=== PATIENT | male | born 1975 | race Caucasian/White ===

== ENCOUNTER 2019-09-19 10:40 | Observation (INO) | payer BC, SELFPAY ==
[2019-09-19 11:58] LABS: Absolute Lymphocytes (CBC) 0.8 K/uL (0.7-4.9); Basophils % 0.3 % (0-1.3); Hematocrit 43.4 % (39.6-49.0); Lymphocytes % 15.7 % (15.3-44.8); MPV 9.1 fL (7.6-11.3); RBC Red Blood Cell Count 4.73 M/uL (4.33-5.43)
[2019-09-19] MEDS ORDERED: ONDANSETRON 4 MG/2 ML VIAL IV PRN (12:00)
[2019-09-19] MEDS ORDERED: ACETAMINOPHEN 325 MG TABLET PO PRN (12:00)
[2019-09-19] MEDS ORDERED: POLYETHYL GLY 3350 17 GM/DOSE PO PRN (12:00)
[2019-09-19] MEDS ORDERED: ONDANSETRON 4 MG (ODT) TAB PO PRN (12:00)
[2019-09-19] MEDS ORDERED: DIPHENHYDRAMINE 25 MG TAB/CAP PO PRN (12:00)
[2019-09-19] MEDS ORDERED: LOPERAMIDE HCL 2 MG CAPSULE PO PRN (12:00)
[2019-09-19 12:02] LABS: Protime INR 0.96
[2019-09-19 12:43] LABS: ALT/SGPT 38 U/L (12-78); AST/SGOT 40 U/L (15-37); Albumin 3.9 g/dL (3.4-5.0); Alkaline Phosphatase 94 U/L (45-117); BUN Blood Urea Nitrogen 9 mg/dL (7-18); Bicarbonate 29 mmol/L (21-32); Bilirubin Direct 0.2 mg/dL (0-0.2); Bilirubin Total 0.7 mg/dL (0.2-1.0); CKMB Creatine Kinase MB 16.1 ng/mL (0.3-3.6); Creatine Phosphokinase 233 U/L (39-308); Glucose Level 97 mg/dL (74-106); Magnesium 2.3 mg/dL (1.8-2.4); Phosphorus 2.7 mg/dL (2.5-4.9); Protein, Total 7.6 g/dL (6.4-8.2); Sodium Level 135 mmol/L (136-145); Thyroid Stimulating Hormone 0.481 uIU/mL (0.360-3.740)
[2019-09-19 12:46] LABS: Troponin I 4.43 ng/mL (0.0-0.045)
[2019-09-19] MEDS: COLCHICINE 0.6 MG TAB PO SCH ×2 (12:55→18:00)
[2019-09-19] MEDS: NACHLORIDE 0.45% 1,000 ML IV SCH (13:12)
--- NOTE | 2019-09-19 13:45 | ECHO ---
HEIGHT: 5 ft 5 in WEIGHT: 203 lb oz DATE OF STUDY: 09/19/[address]: Jemal Moralez MD 2-DIMENSIONAL: YES M.MODE: YES DOPPLER: YES COLOR FLOW: YES TDS: NO PORTABLE: NO DEFINITY: NO BUBBLE STUDY: NO DIAGNOSIS: CHEST PAIN CARDIAC HISTORY: CATHERIZATION: NO SURGERY: NO PROSTHETIC VALVE: NO PACEMAKER: NO MEASUREMENTS (cm) DIASTOLIC (NORMALS) SYSTOLIC (NORMALS) IVSd 1.1 (0.6-1.2) LA Diam 3.2 (1.9-4.0) LVEF 58% LVIDd 3.9 (3.5-5.7) LVIDs 2.7 (2.0-3.5) %FS 30% LVPWd 1.1 (0.6-1.2) Ao Diam 3.1 (2.0-3.7) 2 DIMENSIONAL ASSESSMENT: RIGHT ATRIUM: NORMAL LEFT ATRIUM: NORMAL RIGHT VENTRICLE: NORMAL LEFT VENTRICLE: NORMAL TRICUSPID VALVE: NORMAL MITRAL VALVE: NORMAL PULMONIC VALVE: NORMAL AORTIC VALVE: NORMAL PERICARDIAL EFFUSION: NONE AORTIC ROOT: NORMAL LEFT VENTRICULAR WALL MOTION: PARADOXICAL SEPTUM. DOPPLER/COLOR FLOW: NORMAL COMMENTS: PARADOXICAL SEPTUM. NO EFFUSION. NORMAL LEFT VENTRICULAR EJECTION FRACTION. NO MITRAL VALVE PROLAPSE. TECHNOLOGIST: Ky ESCAMILLA
[2019-09-19] MEDS: ASPIRIN EC 81 MG TAB PO SCH (13:56)
--- NOTE | 2019-09-19 14:01 | RAD REPORT ---
EXAM DESCRIPTION: RAD - Chest Pa And Lat (2 Views) - 09/19/2019 1:31 pm CLINICAL HISTORY: chest pain; pericarditis COMPARISON: None. TECHNIQUE: PA and lateral views of the chest were obtained. FINDINGS: The lungs are clear. Heart size is normal and central vasculature is within normal limit s. No pleural effusion or pneumothorax seen. No acute bony finding noted. No aortic abnormality. IMPRESSION: No acute cardiopulmonary process.
[2019-09-19 14:11] VITALS: BMI 33.7
[2019-09-19 14:53] LABS: Urine Appearance CLEAR; Urine Bilirubin NEGATIVE (NEG); Urine Blood NEGATIVE (NEG); Urine Color YELLOW; Urine Glucose NEGATIVE (NEG); Urine Protein NEGATIVE (NEG)
[2019-09-19 14:55] LABS: Urine Microscopic Reflex NO UMIC
--- NOTE | 2019-09-19 18:24 | EKG ---
Test Date: 2019-09-19 Test Time: 12:37:54 [employer] Lieutenant: A MEASUREMENT RESULTS: Intervals: Rate: 96 DC: 134 QRSD: 84 QT: 324 QTc: 409 [place]: P: 53 DC: 134 QRS: 30 T: 39 INTERPRETIVE STATEMENTS: Normal sinus rhythm Normal ECG Compared to ECG 02/27/2005 08:09:00 T-wave abnormality no longer present Electronically Signed On 09-19-19 18:22:11 DISASTER DIRECTOR by Ubaldo Banks
[2019-09-19 20:14] LABS: CKMB Creatine Kinase MB 7.3 ng/mL (0.3-3.6)
[2019-09-19 20:19] LABS: Troponin I 3.14 ng/mL (0.0-0.045)
--- NOTE | 2019-09-19 23:54 | CON ---
Date of Consultation: 09/19/[address] Moralez's service with chest pain on 09/19/2019. I saw the patient on 09/19/2019. History Of Present Illness: The patient is a 44-year-old male, who has a history of gastroesophageal reflux disease, hypertension, has been sick for approximately few days with cough, chest pain that i s much worse when he lies down. It is better when he sits up. It is nonexertional. No nausea, vomi ting, diaphoresis, PND, orthopnea, pedal edema, palpitations, or syncope. His chest pain was severe enough that Dr. Moralez admitted him to the hospital. Upon admission, he was noted to have an elevated troponin. Echocardiogram which was ordered stat showed paradoxical wall motion of the septum. His EKG was normal. Chest x-ray was normal. Past Medical History: As stated earlier, also includes sleep apnea. Review of Systems: Negative. Social History: Negative. Family History: Positive for heart disease. Allergies: NONE. Medications: At home include Lotrel, Prilosec, Vicodin, Zofran, and antibiotics and he just started colchicine in the hospital. Physical Examination: Vital Signs: Stable. Afebrile. HEENT: Negative. Neck: Supple without any bruit, lymphadenopathy, JVD, or thyromegaly. Chest: Clear to auscultation and percussion. Cardiac: Revealed a regular rhythm and rate. No murmurs, gallops, or rubs. Abdomen: Benign. Extremities: Revealed no clubbing, cyanosis, or edema. Diagnostic Data: As stated earlier. Impression And Plan: 1.Possible pericarditis versus myocarditis. EKG is normal. Troponin is elevated. I think we must rule out coronary artery disease. The case was discussed with Dr[facility] Moralez and [facility] He understands the risks and the benefits of the procedure and he agrees to proceed. Certainly, troponin elevation can be explained by pericarditis and myocarditis. I would agree with the colchic ine. Resume his normal regimen of medication. 2.Hypertension, well controlled. 3.Gastroesophageal reflux, well controlled. 4.Sleep apnea, well controlled. We will see what the catheterization shows before making final deci sions. RADHA/MINDY Voice ID: [id number] Report ID: [id number]
[2019-09-20] MEDS: COLCHICINE 0.6 MG TAB PO SCH ×4 (00:08→18:46)
[2019-09-20 03:38] LABS: Absolute Lymphocytes (CBC) 1.3 K/uL (0.7-4.9); Basophils % 0.6 % (0-1.3); Hematocrit 40.1 % (39.6-49.0); Lymphocytes % 29.6 % (15.3-44.8); RBC Red Blood Cell Count 4.36 M/uL (4.33-5.43)
[2019-09-20 03:44] LABS: Magnesium 2.3 mg/dL (1.8-2.4); Potassium 4.2 mmol/L (3.5-5.1)
[2019-09-20 04:03] LABS: CKMB Creatine Kinase MB 2.8 ng/mL (0.3-3.6)
[2019-09-20 04:08] LABS: Troponin I 1.61 ng/mL (0.0-0.045)
[2019-09-20 05:12] LABS: Blood Morphology Comment NOT SEEN (NOT SEEN); Platelet Estimate ADEQ
[2019-09-20] MEDS: AMLODIPINE 5 MG TAB PO SCH (05:51)
[2019-09-20] MEDS: ASPIRIN EC 81 MG TAB PO SCH (05:51)
[2019-09-20] MEDS: BENAZEPRIL 20 MG TAB PO SCH (05:52)
[2019-09-20] MEDS ORDERED: HEPA 1000U/500MLS 2,000 UNIT/1,000 ML BAG IV ONE (08:53)
[2019-09-20] MEDS ORDERED: AMLODIPINE BESYLATE PO SCH (09:00)
[2019-09-20] MEDS: FENOFIBRATE MICRONIZED 67 MG PO SCH (09:00)
[2019-09-20] MEDS ORDERED: BENAZEPRIL PO SCH (09:00)
[2019-09-20] MEDS ORDERED: FENTANYL CITR 100 MCG/2 ML ONE ×2 (09:31→10:29)
[2019-09-20] MEDS ORDERED: NA CHLORIDE 0.9% 500 ML ONE (09:31)
[2019-09-20] MEDS ORDERED: HEPARIN 5000 UNIT/ML 1 ML VIAL ONE (09:31)
[2019-09-20] MEDS ORDERED: MIDAZOLAM HCL 2 MG/2 ML INJ ONE ×3 (09:31→10:29)
[2019-09-20] MEDS ORDERED: NICARDIPINE HCL 25 MG/10 ML IV ONE (09:32)
[2019-09-20] MEDS ORDERED: NA CHLORIDE 0.9% 0 ML IV ONE (09:32)
[2019-09-20] MEDS ORDERED: ATROPINE SULF 1 MG/10 ML SYR IV ONE (09:32)
[2019-09-20] MEDS ORDERED: METOPROLOL TARTRATE 5 MG/5 ML INJ IV ONE (10:17)
--- NOTE | 2019-09-20 12:01 | OP ---
Surgeon: Kevin Han MD Answering Service Agent: Filomena Chavez. Identification: 44-year-old man. Procedure: Left heart catheterization with coronary left ventricular angiography. Indication: Evidence of [id number]. Troponins of 4 with chest pain. Procedure Findings: The patient has normal left ventricular ejection fraction, normal coronary arter ies, typical right dominant pattern with a small ramus. There is no plaque or calcification or any e tiffanie signs of atherosclerosis. His left ventricular ejection fraction normal, left ventricular end-d iastolic pressure 9. No aortic valve gradient on pullback. Normal cardiac cath. Procedure In Detail: The patient was brought to the cardiac chemical processing laborer in a fasting state, sedated wit h Versed and fentanyl. Prepared and draped in usual sterile fashion. The right radial artery was id entified through palpation. Tissues around the artery were anesthetized with 1% lidocaine. The juan c ry was entered using a 21-gauge needle, cannulated with a 0.021 inch diameter guidewire and a 6-Frenc h Terumo radial sheath was used. As soon as the sheath was in place, wire and introducer were remove d. The sheath was flushed and a radial cocktail was given consisting of nicardipine, heparin, nitrog lycerin. We guided a TIG catheter into the ascending aorta using fluoroscopy and a short radius J-ti p Glidewire. We were able to cannulate left ventricle, right coronary, left coronary all with the sa me catheter. No catheter exchanges were required. After pictures were taken, data was retrieved and found to be adequate. We removed the catheter over a guidewire, flushed the sheath, removed it, and closed the arteriotomy using a TR band. Estimated Blood Loss: 5 cc. Complications: None SH/MODL Voice ID: [id number] Report ID: [id number]
[2019-09-20] MEDS: PANTOPRAZOLE 40MG TABLET PO SCH (16:08)
[2019-09-20 18:22] LABS: MPV 8.6 fL (7.6-11.3)
[2019-09-20 18:26] LABS: Platelet Estimate DECR
[2019-09-20] MEDS: NACHLORIDE 0.45% 1,000 ML IV SCH (21:20)
--- NOTE | 2019-09-21 00:07 | PN ---
Subjective: His pain has improved significantly. He is able to lay down without much discomfort. Objective: Chest: Clear. Heart: Regular. Abdomen: No guarding, rebound, or rigidity. Vital Signs: Blood pressure is 114/73, pulse 91, temperature 98.8. Assessment And Plannin.Possible pericarditis. CRP is extremely high. Sedimentation rate is normal. His symptoms were c lassic for pericarditis. He could have a touch of myocarditis at the same time, even though echocard iogram and cardiac cath do not show myocarditis, but again any early stage of any disease is usually not visible on objective testing. I believe he still has pericarditis as a final diagnosis. Dr. Diaz oviedo wants a CT angiogram will be done tomorrow. His cardiac cath was done today, which was totally n egative. 2.High blood pressure, currently stable. Continue medications. RVD/MODL Voice ID: [id number] Report ID: [id number]
[2019-09-21] MEDS: COLCHICINE 0.6 MG TAB PO SCH ×3 (02:31→11:13)
[2019-09-21 04:18] LABS: Absolute Lymphocytes (CBC) 1.2 K/uL (0.7-4.9); Basophils % 0.6 % (0-1.3); Hematocrit 39.9 % (39.6-49.0); Lymphocytes % 25.2 % (15.3-44.8); MPV 9.3 fL (7.6-11.3); RBC Red Blood Cell Count 4.31 M/uL (4.33-5.43)
[2019-09-21 04:24] LABS: Magnesium 2.1 mg/dL (1.8-2.4)
--- NOTE | 2019-09-21 08:41 | RAD REPORT ---
EXAM DESCRIPTION: CT - Chest For Pe Angio - 09/21/2019 8:09 am CLINICAL HISTORY: Chest pain. PAIN COMPARISON: No comparisons TECHNIQUE: CT angiogram of the pulmonary arteries was performed with MIP. All CT scans are performed using dose optimization technique as appropriate and may include automated exposure control or mA/KV adjustment according to patient size. FINDINGS: No evidence of pulmonary thromboembolism. No acute aortic finding demonstrated. The lungs are clear. No significant pericardial or pleural fluid. No concerning bony finding. Cholecystectomy clips. IMPRESSION: No evidence of pulmonary thromboembolism. No acute lung findings.
[2019-09-21] MEDS ORDERED: ENOXAPARIN 40 MG/0.4 ML SQ SCH (09:00)
[2019-09-21] MEDS: FENOFIBRATE MICRONIZED 67 MG PO SCH (09:00)
[2019-09-21] MEDS: NACHLORIDE 0.45% 1,000 ML IV SCH (09:04)
[2019-09-21] MEDS: PANTOPRAZOLE 40MG TABLET PO SCH (09:06)
[2019-09-21] MEDS: BENAZEPRIL 20 MG TAB PO SCH (09:06)
[2019-09-21] MEDS: ASPIRIN EC 81 MG TAB PO SCH (09:07)
[2019-09-21] MEDS: AMLODIPINE 5 MG TAB PO SCH (09:07)
[2019-09-21 12:08] VITALS: O2SAT 99
[2019-09-21 12:46] VITALS: BP 112/62; TEMP 97.4
[2019-09-21] MEDS ORDERED: PANTOPRAZOLE 40MG TABLET PO SCH (16:00)
--- NOTE | 2019-09-22 00:19 | PN ---
Patient was admitted by Dr. Moralez on 09/19/2019 with chest pain, abnormal troponin. Echocardiogram s howed paradoxical septal wall motion, normal ejection fraction, no effusion. The possibility of louise carditis was being entertained. He was being treated with colchicine. A catheterization was done be cause of the abnormal troponin and showed normal coronaries. Continues to have chest pain. His joy l signs remain stable. He remains afebrile. There is a plan for a CT angiogram today to rule out pu lmonary embolus. I think if this is negative, he can certainly go home on colchicine and anti-inflam matory agent and we will be happy to see him in the office in the next week or 2. I will discuss the case further with Dr. Moralez after the CTA is done. RADHA/MINDY Voice ID: [id number] Report ID: [id number]
--- NOTE | 2019-09-22 05:59 | DS ---
Date of Discharge: 09/21/2019 Final Diagnoses: Acute pericarditis, possible myocarditis, possible viral syndrome. Secondary Diagnoses: High blood pressure, high cholesterol. Hospital Course: The patient is a 44-year-old gentleman, who comes in with classical symptoms of acu te pericarditis with chest pain while he was lying down and when he sat up, his pain improved. He di d not have any kind of pericardial rub. His CRP was high on admission. Sedimentation rate was haily l. WBC count was normal. His echocardiogram was normal. EKG was normal. CT angiogram of chest was normal and cardiac cath was done because of troponin that was normal. Within a few hours of colchic ine therapy, he improved significantly. First day I gave him 4 times a day and I am reducing down to twice a day and take colchicine with aspirin for about 3 months. This according to new trials has i mproved. Rate of improvement of pericarditis is high and usually 3 months at least of therapist mari mmended. ANGELIA/MODL Voice ID: [id number] Report ID: [id number]
== END 2019-09-21 13:35 | disposition home or self-care (01) ==
LOC: 4TH 10:49
PROVIDERS: ADMIT Internal Medicine; ATTEND Internal Medicine
DX: I30.9 Acute pericarditis, unspecified (principal); I10 Essential (primary) hypertension; K21.9 Gastro-esophageal reflux disease without esophagitis; G47.30 Sleep apnea, unspecified
CPT/HCPCS: 93005; 93306; 87040 ×2; 85025 ×3; 80048 ×3; 36415 ×2; 83735 ×3; 82550 ×3; 84100; 85049; 85610; 80076; 85730; 85652; 84443; 81003; 84484 ×3; 82553 ×3; 82607; 82306; 86140; 71275; 71046; 93458; Q9967; G0379; C1893; J1644; J2250 ×2; J3010; G0378 ×5; J7040; J0583; J1650